=== PATIENT | male | born 1995 | race Caucasian/White ===

== ENCOUNTER 2016-11-12 20:18 | Inpatient (IN) | payer BC, OTHER ==
[~2016-11-12] VITALS: Ht 172.7 cm; Wt 70.3 kg
[2016-11-12 20:55] VITALS: BP 122/76
[2016-11-12] MEDS ORDERED: MAGNESIUM HYDROXIDE 30 ML LIQUID UDC PO PRN (22:15)
[2016-11-12] MEDS ORDERED: BUPRENORPHINE HCL 2 MG TAB.SUBL SL PRN (22:15)
[2016-11-12] MEDS ORDERED: METHOCARBAMOL 750 MG TABLET PO PRN (22:15)
[2016-11-12] MEDS ORDERED: MAG HYDROX/AL HYDROX/SIMETH 30 ML LIQUID UDC PO PRN (22:15)
[2016-11-12] MEDS ORDERED: ONDANSETRON ODT 4 MG TAB.RAPDIS SL PRN (22:15)
[2016-11-12] MEDS ORDERED: IBUPROFEN 400 MG TABLET PO PRN (22:15)
[2016-11-12] MEDS ORDERED: LOPERAMIDE HCL 2 MG CAPSULE PO PRN ×2 (22:15)
[2016-11-12] MEDS ORDERED: ACETAMINOPHEN 325 MG TABLET PO PRN (22:15)
[2016-11-12] MEDS ORDERED: diphenhydrAMINE 50 MG CAPSULE PO PRN (22:15)
[2016-11-12 22:49] LABS: *AMPHETAMINE, URINE POSITIVE (NEGATIVE); *BARBITURATE, URINE NEGATIVE (NEGATIVE); *CANNABINOID, URINE POSITIVE (NEGATIVE); *COCCAINE, URINE NEGATIVE (NEGATIVE); *OPIATE, URINE POSITIVE (NEGATIVE); *PHENCYCLIDINE SCREEN,URINE NEGATIVE (NEGATIVE)
[2016-11-13 00:46] VITALS: BP 112/51
[2016-11-13 01:22] LABS: BASOPHILS % (AUTO) 0.6 % (0.0-2.0); EOSINOPHILS # (AUTO) 0.4 K/uL (0.0-0.7); EOSINOPHILS % (AUTO) 6.1 % (0.0-7.0); HEMATOCRIT 42.1 % (35.0-45.0); HEMOGLOBIN 14.3 g/dL (11.5-15.5); LYMPHOCYTES # (AUTO) 3.3 K/uL (0.8-4.8); LYMPHOCYTES % (AUTO) 45.7 % (20.5-74.5); MEAN CORPUSCULAR HEMOGLOBIN 28.9 uug (27.0-31.0); MEAN CORPUSCULAR HGB CONC 34 g/dL (32.0-37.0); MEAN CORPUSCULAR VOLUME 84.8 fL (77.0-95.0); MONOCYTES # (AUTO) 1.1 K/uL (0.1-1.30); MONOCYTES % (AUTO) 15.4 % (0-11); NEUTROPHILS # (AUTO) 2.3 K/uL (1.8-8.9); NEUTROPHILS % (AUTO) 32.2 % (31.5-64.5); PLATELET COUNT (AUTO) 271 K/uL (150-450); RED BLOOD CELL COUNT(AUTO) 4.96 MIL/uL (3.90-5.30); RED CELL DISTRIBUTION WIDTH 13.3 % (11.5-14.5); WHITE BLOOD COUNT (AUTO) 7.1 K/uL (4.5-14.5)
[2016-11-13 01:25] LABS: ETHANOL < 3 MG/DL (0-0)
[2016-11-13 01:37] LABS: THYROID STIMULATING HORMONE 0.235 mIU/mL (0.358-3.740)
[2016-11-13 01:46] LABS: HIV-1 p24 ANTIGEN NON REACTIVE (NONREACTIVE); HIV-1/2 ANTIBODY NON REACTIVE (NONREACTIVE)
[2016-11-13 01:49] LABS: EOSINOPHILS % (MANUAL) 4 % (0-8); LYMPHOCYTES % (MANUAL) 40 % (38-48); MONOCYTES % (MANUAL) 16 % (2-10); NEUTROPHILS % (MANUAL) 36 % (40-55)
[2016-11-13 01:50] LABS: PLATELET ESTIMATE ADEQUATE
[2016-11-13 02:04] LABS: ALANINE AMINOTRANSFERASE 228 U/L (16-63); ALBUMIN 3.6 g/dL (3.4-5.0); ALKALINE PHOSPHATASE 123 U/L (50-136); ASPARTATE AMINOTRANSFERASE 65 U/L (15-37); BILIRUBIN,TOTAL 0.5 mg/dL (0.2-1.0); CALCIUM 8.4 mg/dL (8.5-10.1); CARBON DIOXIDE 30 mmol/L (21-32); CHLORIDE 104 mmol/L (98-107); CREATININE 0.9 mg/dL (0.6-1.3); GFR 108 mL/min (>60); GLUCOSE 98 mg/dL (74-106); MAGNESIUM 1.9 mg/dL (1.8-2.4); POTASSIUM 3.5 mmol/L (3.5-5.1); SODIUM SERUM 143 mmol/L (136-145); TOTAL PROTEIN, SERUM 7.3 g/dL (6.4-8.2); UREA NITROGEN, BLOOD 15 mg/dL (7-18)
[2016-11-13 08:00] VITALS: BP 138/77
[2016-11-13] MEDS ORDERED: TUBERCULIN,PURIF.PROT.DERIV. 5 TU/0.1 ML TEST ID ONE (09:00)
[2016-11-13] MEDS: HYDROXYZINE PAMOATE 25 MG CAPSULE PO PRN (09:35)
[2016-11-13] MEDS: CLONIDINE HCL 0.1 MG TABLET PO PRN (09:35)
[2016-11-13] MEDS: MULTIVITAMINS,THERAPEUTIC TABLET PO SCH (09:35)
[2016-11-13] MEDS ORDERED: LORAZEPAM 1 MG TABLET PO PRN ×2 (11:00)
[2016-11-13] MEDS ORDERED: LORAZEPAM 2 MG/1 ML VIAL IM PRN (11:00)
[2016-11-13 12:00] VITALS: BP 132/78
[2016-11-13] MEDS: GABAPENTIN 300 MG CAPSULE PO SCH ×2 (12:05→17:40)
[2016-11-13] MEDS: BUPRENORPHINE HCL 2 MG TAB.SUBL SL SCH ×4 (12:05→20:15)
[2016-11-13] MEDS: LORAZEPAM 1 MG TABLET PO SCH ×3 (12:05→20:14)
[2016-11-13 16:00] VITALS: BP 99/64
[2016-11-13 20:14] VITALS: BP 113/66
[2016-11-14 08:00] VITALS: BP 97/65
[2016-11-14] MEDS: GABAPENTIN 300 MG CAPSULE PO SCH ×3 (08:30→16:55)
[2016-11-14] MEDS: LORAZEPAM 1 MG TABLET PO SCH ×3 (08:30→20:53)
[2016-11-14] MEDS: MULTIVITAMINS,THERAPEUTIC TABLET PO SCH (08:30)
[2016-11-14] MEDS: BUPRENORPHINE HCL 2 MG TAB.SUBL SL SCH ×3 (08:30→20:53)
[2016-11-14 12:00] VITALS: BP 109/71
[2016-11-14] MEDS: CLONIDINE HCL 0.1 MG TABLET PO PRN (12:45)
[2016-11-14] MEDS ORDERED: KETOROLAC TROMETHAMINE 30 MG INJ IM PRN (12:45)
[2016-11-14] MEDS: CLONIDINE HCL 0.1 MG TABLET PO SCH ×2 (14:08→22:44)
[2016-11-14 16:00] VITALS: BP 96/53
[2016-11-14 20:00] VITALS: BP 107/74
[2016-11-14] MEDS ORDERED: IBUPROFEN 400 MG TABLET PO PRN (22:15)
[2016-11-14 22:40] VITALS: BP 107/62
[2016-11-14] MEDS: METHOCARBAMOL 750 MG TABLET PO PRN (22:43)
[2016-11-14] MEDS: IBUPROFEN 600 MG TABLET PO PRN (22:43)
[2016-11-15] VITALS: BP 112/50
[2016-11-15 05:35] VITALS: BP 110/73
[2016-11-15] MEDS: HYDROXYZINE PAMOATE 25 MG CAPSULE PO PRN (05:35)
[2016-11-15] MEDS: METHOCARBAMOL 750 MG TABLET PO PRN ×2 (05:40→21:12)
[2016-11-15 08:00] VITALS: BP 125/76
[2016-11-15] MEDS ORDERED: BUPRENORPHINE HCL 2 MG TAB.SUBL SL SCH (09:00)
[2016-11-15] MEDS: MULTIVITAMINS,THERAPEUTIC TABLET PO SCH (10:04)
[2016-11-15] MEDS: GABAPENTIN 300 MG CAPSULE PO SCH ×3 (10:04→21:12)
[2016-11-15] MEDS: CLONIDINE HCL 0.1 MG TABLET PO SCH ×3 (10:04→21:11)
[2016-11-15] MEDS: LORAZEPAM 1 MG TABLET PO SCH ×4 (10:04→21:11)
[2016-11-15 12:00] VITALS: BP 116/65
[2016-11-15] MEDS: BUPRENORPHINE HCL 2 MG TAB.SUBL SL SCH ×2 (14:40→21:12)
[2016-11-15 16:00] VITALS: BP 104/67
[2016-11-15 20:00] VITALS: BP 111/72
[2016-11-16 08:00] VITALS: BP 127/79
[2016-11-16] MEDS: BUPRENORPHINE HCL 2 MG TAB.SUBL SL SCH ×3 (09:18→21:08)
[2016-11-16] MEDS: CLONIDINE HCL 0.1 MG TABLET PO SCH ×3 (09:19→21:09)
[2016-11-16] MEDS: GABAPENTIN 300 MG CAPSULE PO SCH ×3 (09:19→21:09)
[2016-11-16] MEDS: LORAZEPAM 1 MG TABLET PO SCH ×3 (09:19→21:09)
[2016-11-16] MEDS: MULTIVITAMINS,THERAPEUTIC TABLET PO SCH (09:19)
[2016-11-16 12:00] VITALS: BP 124/72
[2016-11-16 16:00] VITALS: BP 123/71
[2016-11-16 20:00] VITALS: BP 115/65
[2016-11-16] MEDS: PRAZOSIN HCL 1 MG CAPSULE PO SCH (21:10)
[2016-11-17] VITALS: BP 96/51
[2016-11-17 04:00] VITALS: BP 104/55
[2016-11-17 08:00] VITALS: BP 106/61
[2016-11-17] MEDS: CLONIDINE HCL 0.1 MG TABLET PO SCH ×3 (09:00→20:16)
[2016-11-17] MEDS ORDERED: BUPRENORPHINE HCL 2 MG TAB.SUBL SL SCH (09:00)
[2016-11-17] MEDS: MULTIVITAMINS,THERAPEUTIC TABLET PO SCH (09:15)
[2016-11-17] MEDS: LORAZEPAM 1 MG TABLET PO SCH ×2 (09:15→20:15)
[2016-11-17] MEDS: GABAPENTIN 300 MG CAPSULE PO SCH ×3 (09:16→20:15)
[2016-11-17 12:00] VITALS: BP 117/60
[2016-11-17 16:00] VITALS: BP 88/40
[2016-11-17 20:00] VITALS: BP 110/63
[2016-11-17] MEDS: PRAZOSIN HCL 1 MG CAPSULE PO SCH (20:16)
[2016-11-17] MEDS: METHOCARBAMOL 750 MG TABLET PO PRN (21:46)
[2016-11-17] MEDS: HYDROXYZINE PAMOATE 25 MG CAPSULE PO PRN (21:46)
[2016-11-17] MEDS: IBUPROFEN 600 MG TABLET PO PRN (22:51)
[2016-11-18] VITALS: BP 106/46
[2016-11-18 04:09] VITALS: BP 98/48
[2016-11-18 08:00] VITALS: BP 90/53
[2016-11-18] MEDS: CLONIDINE HCL 0.1 MG TABLET PO SCH ×3 (09:00→20:13)
[2016-11-18] MEDS: MULTIVITAMINS,THERAPEUTIC TABLET PO SCH (09:35)
[2016-11-18] MEDS: GABAPENTIN 300 MG CAPSULE PO SCH ×3 (09:35→20:14)
[2016-11-18 12:00] VITALS: BP 90/50
[2016-11-18 13:29] LABS: *AMPHETAMINE Positive (.); *BENZODIAZEPINES Negative (Cutoff=300); *CANNABINOID (THC) Positive (.); *CODEINE Negative (Cutoff=300); *HYDROMORPHONE Negative (Cutoff=300); *METHAMPHETAMINE Positive (.); *OPIATES Positive ng/mL (Cutoff=300)
[2016-11-18 16:00] VITALS: BP 101/70
[2016-11-18 20:00] VITALS: BP 112/67
[2016-11-18] MEDS: PRAZOSIN HCL 1 MG CAPSULE PO SCH (20:14)
[2016-11-18 21:49] LABS: *AMPHETAMINE, URINE NEGATIVE (NEGATIVE); *BARBITURATE, URINE NEGATIVE (NEGATIVE); *CANNABINOID, URINE NEGATIVE (NEGATIVE); *COCCAINE, URINE NEGATIVE (NEGATIVE); *OPIATE, URINE NEGATIVE (NEGATIVE); *PHENCYCLIDINE SCREEN,URINE NEGATIVE (NEGATIVE)
[2016-11-19] VITALS: BP 111/60
[2016-11-19 04:00] VITALS: BP 115/64
[2016-11-19 08:00] VITALS: BP 109/67
[2016-11-19] MEDS: GABAPENTIN 300 MG CAPSULE PO SCH (08:24)
[2016-11-19 08:25] VITALS: BP 114/65
[2016-11-19] MEDS: MULTIVITAMINS,THERAPEUTIC TABLET PO SCH (08:25)
[2016-11-19] MEDS: CLONIDINE HCL 0.1 MG TABLET PO SCH (08:25)
[2016-11-19] MEDS ORDERED: Ondansetron SL (09:01)
[2016-11-19] MEDS ORDERED: METH-33 PO (09:01)
[2016-11-19] MEDS ORDERED: HYDR-3895 PO (09:01)
[2016-11-19] MEDS ORDERED: Gabapentin PO (09:01)
[2016-11-19] MEDS ORDERED: PRAZ1CAP2 PO (09:01)
[2016-11-19] MEDS ORDERED: Ibuprofen PO (09:01)
[2016-11-19] MEDS ORDERED: CLON0.1T14 PO (09:01)
== END 2016-11-19 10:11 | disposition other institution (70) | DRG 895 ==
LOC: SRC 20:18
PROVIDERS: ADMIT Internal Medicine; ATTEND Internal Medicine
PROC: HZ2ZZZZ Detoxification Services for Substance Abuse Treatment (ICD-10-PCS; principal; 2016-11-12)
PROC: HZ31ZZZ Individual Counseling for Substance Abuse Treatment, Behavioral (ICD-10-PCS; 2016-11-13)
PROC: HZ41ZZZ Group Counseling for Substance Abuse Treatment, Behavioral (ICD-10-PCS; 2016-11-17)
DX: F11.23 Opioid dependence with withdrawal (principal); Z59.0 Homelessness; F15.23 Other stimulant dependence with withdrawal; F13.230 Sedative, hypnotic or anxiolytic dependence with withdrawal, uncomplicated; E83.42 Hypomagnesemia; Z81.8 Family history of other mental and behavioral disorders; F43.10 Post-traumatic stress disorder, unspecified; F17.210 Nicotine dependence, cigarettes, uncomplicated
CPT/HCPCS: 36415; 70030-TC; 80307; 80324; 80346; 80349; 80361; 83735; 84443; 85025; 86580; 87806; A4663; G6040-TC; Q0162; Q0163